=== PATIENT | female | born 1965 | race Caucasian/White ===

== ENCOUNTER → 2022-01-19 | Day surgery (SDC) | payer BC ==
[~2022-01-19] VITALS: Ht 165.1 cm; Wt 63.0 kg
[~2022-01-19] MED LIST: CETI10TA74 PO; FLUO20CA16 PO; LIDOCAINE 1%/EPI 1:100,000 20 ML VIAL. INJ ONE
[2022-01-19 10:37] VITALS: BP 114/72
--- NOTE | 2022-01-19 11:05 | PDOC4 ---
Operative Note Operative Note Date: January 192021 at 11:03 AM Preoperative diagnosis: Upper back mass Postoperative diagnosis: Same Procedure: Excision of mass Surgeon: Vitor Specimen: Upper back mass Dictation: Patient is a 56-year-old female is complaining of enlarging mass on her upper back denies any real pain but occasionally it is uncomfortable. Procedure of excision was explained to the patient detail risk benefits were also discussed including bleeding infection alternatives this procedure also discussed with patient who seemed to understand and gave a verbal written consent to have the procedure performed. Patient was taken to the minor's room placed in the prone positioning her upper back was prepped and draped usual sterile fashion using ChloraPrep. Area over the mass was injected with 1% lidocaine with epinephrine. Once this was anesthetized incision was made with 15 blade scalpel is carried down through the subcutaneous tissues using 15 blade scalpel to further excise the mass sharply and a total mass size was 5 x 4 cm with no margin. The wound was then closed in 2 layers of deep layer running 3-0 Vicryl and the skin was reapproximated for subcuticular Monocryl Mastisol Steri- Strips and island dressings were applied. Patient was discharged home in stable condition all sponge instrument needle counts listed as correct estimated blood loss 5 mL NIKOLAS MARRUFO MD Jan 19, 2022 11:05
--- NOTE | 2022-01-19 11:10 | DISCH ---
DISCHARGE INSTRUCTIONS Condition on Discharge Condition on Discharge: Stable Activity After Discharge Activity Instructions for Disc: Activity as tolerated Diet after Discharge Diet after Discharge: Regular Wound Incision Care Other wound/incision instructi: May shower in 24 hours Contacting the after DC Call your doctor for: If your condition worsens Follow-Up Follow up with: Dr. Marrufo in 2 weeks NIKOLAS MARRUFO MD Jan 19, 2022 11:10
--- NOTE | 2022-01-24 12:08 | PATHOLOGY ---
[facility] Accession Number: [id number] . 01 Material submitted: . back - MID BACK MASS. Modifiers: mid . 02 Diagnosis: Soft tissue "mid back mass", excision: - Lipoma. (MLK:pit; 01/24/2022) QTP 01/24/2022 0706 Local . 02 Electronically signed: . Chan Hart MD, Pathologist NPI- [id number] . 01 Gross description: . Fixative: Formalin Labeled: Mid back mass Specimen received: An intact, discoid segment of bright yellow, lobulated tissue Dimensions: 4.2 x 3.9 x 1.3 cm External surface: Submitted to slightly roughened with the surgical margin inked black Cut surface: Bright yellow, lobulated and glistening . Bottle Label Inspector sections are submitted in A1. ([facility]; 01/20/2022) NRI/NRI 01/20/2022 0820 Local . 02 Pathologist provided ICD-10: D17.39 . 02 CPT . 273243 Specimen Comment: A courtesy copy of this report has been sent to [phone], [phone] Specimen Comment: [phone] Specimen Comment: Report sent to / DR ARANDA Performed at: 01 [facility] [address], [place], [place] [id number] MD Edmond Conner MD Phone: [phone] Performed at: 02 [facility] [address], [place] [id number] MD Corbin Colon MD Phone: [phone]
== END | disposition home or self-care (01) ==
LOC: SURG 10:05
PROVIDERS: ATTEND Surgery
DX: R22.2 Localized swelling, mass and lump, trunk (principal); D17.39 Benign lipomatous neoplasm of skin and subcutaneous tissue of other sites; F32.9 Major depressive disorder, single episode, unspecified; Z79.899 Other long term (current) drug therapy; Z98.890 Other specified postprocedural states; Z88.0 Allergy status to penicillin
CPT/HCPCS: 21931; 88304; J3490